=== PATIENT | male | born 1980 | race Native Hawaiian/Other Pacific Islander ===

== ENCOUNTER 2021-03-18 12:53 | Emergency (ER) | payer OTHER ==
[~2021-03-18] VITALS: Ht 165.1 cm; Wt 63.5 kg
[2021-03-18] MEDS ORDERED: FLONASE 0.05%50 MCG NARES (13:46)
[2021-03-18] MEDS ORDERED: DOXYCYCLINE 10100 MG PO (13:46)
[2021-03-18 14:04] VITALS: BP 140/54
== END 2021-03-18 14:04 | disposition home or self-care (01) ==
LOC: M.ERS 12:53
DX: J32.0 Chronic maxillary sinusitis (principal)